=== PATIENT | male | born 1970 | race Caucasian/White ===

== ENCOUNTER 2017-06-23 13:37 | Emergency (ER) | payer MEDICAID ==
[2017-06-23 13:50] VITALS: O2SAT 98
[2017-06-23] MEDS ORDERED: Lidocaine 2% Inj (20ml) INFIL STA (14:21)
[2017-06-23] MEDS ORDERED: Lidocaine 2% Inj (20ml) ONE (14:25)
--- NOTE | 2017-06-23 16:10 | C.PDOC ---
History Of Present Illness 47 y/o male presents to the ED for evaluation of pain to left index finger which began around 4 days ago. Patient states he bit off a dry cuticle that is now infected. He denies active bleeding. Time Seen by Provider: 06/23/17 14:07 Chief Complaint (Nursing): Finger,Hand,&Wrist History Per: Patient History/Exam Limitations: no limitations Onset/Duration Of Symptoms: Days (4) Current Symptoms Are (Timing): Still Present Quality: "Pain" Additional History Per: Patient Past Medical History Reviewed: Historical Data, Nursing Documentation, Vital Signs Vital Signs: Last Vital Signs Temp 98.2 F 06/23/17 16:20 Pulse 78 06/23/17 16:20 Resp 18 06/23/17 16:20 BP 124/78 06/23/17 16:20 Pulse Ox 98 06/23/17 20:44 - Medical History PMH: Asthma Family History: States: Unknown Family Hx - Social History Hx Alcohol Use: No Hx Substance Use: Yes - Immunization History Hx Tetanus Toxoid Vaccination: No Hx Influenza Vaccination: No Hx Pneumococcal Vaccination: No Review Of Systems Musculoskeletal: Positive for: Other (+left index finger pain ) Physical Exam - Physical Exam Appears: Non-toxic, No Acute Distress Skin: Normal Color, Warm, Dry, No Ecchymosis Extremity: Normal ROM, Tenderness (left index finger ), Capillary Refill (less than 2 seconds), Swelling (left index finger), Other (fluctuant paronychia to left index finger ) Neurological/Psych: Normal Speech, Normal Cognition ED Course And Treatment O2 Sat by Pulse Oximetry: 98 (on RA) Pulse Ox Interpretation: Normal Progress Note: Fluctuant area to left index finger. Local anesthesia achieved with 2% lidocaine without epinephrine. Copious amounts of yellow purulent discharge expressed. Culture obtained and sent to lab for further evaluation. Sterile packing placed in incision. Wound dressed with dry, sterile dressing. Pt tolerated well. Patient received Augmentin PO. On reassessment, patient is resting comfortably, showing no signs of distress, and reports an improvement in his symptoms. Patient is stable for discharrge and is advised to follow up with his PMD within 1-2 days for further evaluation. Reassessment Condition: Improved - Incision & Drainage Of Abscess Anesthesia: Lidocaine 1% Procedure: Drained Pus, Probed To Break Up Loculations, Packed W/Gauze, Cultures Obtained And Sent To Lab Disposition - Disposition Referrals: Xu Avalos MD [Staff Provider] - Disposition: HOME/ ROUTINE Disposition Time: 16:08 Condition: STABLE Additional Instructions: Follow up with PMD within 1-2 days. Return to ED if feel worse. 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 - Scribe Statement The provider has reviewed the documentation as recorded by the Scribe (Micaela Hinds) All medical record entries made by the Scribe were at my direction and personally dictated by me. I have reviewed the chart and agree that the record accurately reflects my personal performance of the history, physical exam, medical decision making, and the department course for this patient. I have also personally directed, reviewed, and agree with the discharge instructions and disposition. Addendum Addendum: 06/26/17 07:44 Patient was called back for new antibiotic prescription that needs to be changed. 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
[2017-06-23] MEDS ORDERED: Amoxicillin-Clav 875-125 mg Tab PO STA (16:11)
[2017-06-23] MEDS ORDERED: Amoxicillin-Clav 875-125 mg Tab PO ONE (16:19)
[2017-06-23 16:22] VITALS: BP 124/78; PULSE 78; RESP 18; TEMP 98.2
[2017-06-23] MEDS ORDERED: Bacitracin 500 Units/gm Oint Foilpak UD ONE (16:24)
== END 2017-06-23 16:22 | disposition home or self-care (01) ==
LOC: C.ER 13:37
DX: L03.012 Cellulitis of left finger (principal)

== ENCOUNTER 2017-08-23 14:06 | Emergency (ER) | payer MEDICAID, OTHER ==
[2017-08-23 14:15] VITALS: BP 132/80; PULSE 69; RESP 18; TEMP 97.7; O2SAT 100
--- NOTE | 2017-08-23 14:34 | C.PDOC ---
Time Seen by Provider: 08/23/17 14:33 Chief Complaint (Nursing): Headache Past Medical History Vital Signs: Last Vital Signs Temp 97.7 F 08/23/17 14:11 Pulse 69 08/23/17 14:11 Resp 18 08/23/17 14:11 BP 132/80 08/23/17 14:11 Pulse Ox 100 08/23/17 14:11 - Medical History PMH: Asthma Denies: Chronic Kidney Disease Family History: States: Unknown Family Hx - Social History Hx Alcohol Use: No Hx Substance Use: Yes (Marijuana - ocassionally) - Immunization History Hx Tetanus Toxoid Vaccination: No Hx Influenza Vaccination: No Hx Pneumococcal Vaccination: No ED Course And Treatment O2 Sat by Pulse Oximetry: 100 Disposition - Disposition
--- NOTE | 2017-08-23 14:44 | C.PDOC ---
History Of Present Illness 47 year old male presents to the ED for evaluation after he sustained a fall yesterday. Patient complains of a head injury, left upper extremity, left hip, and left buttock injury. Patient states he slipped on wet floor. He denies LOC, nausea, vomiting. Patient is ambulatory without difficulty. Patient states pain is worse with movement. He denies any other associated symptoms at this time. SP FALL YESTERDAY CO HEAD INJURY, LUE AND L HIP.BUTTOCK INJURY. PS SLIPPED ON WET FLOOR. NO LOC, NV. AMBUL WO DIFF. PAIN WORSE W MOVEMENT. NO OTHER ASSOC SX EXAM NAD HEENT ATRAUM NO FOCAL TEND, MIND SWELL L PARIETAL AREA EXT L SHOULDER AROM WO DIFF ATRAUM NO FOCAL TEND. L HIP AROM WO DIFF. NONTEND. PT DOESNT WANT TO REMOVE PANTS FOR FULL EVAL GAIT WNL WT BEAR WO DIFF NEURO INTACT - HPI Time Seen by Provider: 08/23/17 14:33 Chief Complaint (Nursing): Headache History Per: Patient History/Exam Limitations: no limitations Injury Occurred (Timing): Just Before Arrival Location Of Injury: Left: Arm, Buttock, Hip Additional History Per: Patient - Fall Fall:Prior To Injury: Slipped Past Medical History Reviewed: Historical Data, Nursing Documentation, Vital Signs Vital Signs: Last Vital Signs Temp 97.7 F 08/23/17 14:11 Pulse 69 08/23/17 14:11 Resp 18 08/23/17 14:11 BP 132/80 08/23/17 14:11 Pulse Ox 100 08/23/17 23:16 - Medical History PMH: Asthma Denies: Chronic Kidney Disease Surgical History: No Surg Hx Family History: States: Unknown Family Hx - Social History Hx Alcohol Use: No Hx Substance Use: Yes (Marijuana - ocassionally) - Immunization History Hx Tetanus Toxoid Vaccination: No Hx Influenza Vaccination: No Hx Pneumococcal Vaccination: No Review Of Systems Gastrointestinal: Negative for: Nausea, Vomiting Musculoskeletal: Positive for: Shoulder Pain (left ), Other (left hip pain ) Physical Exam - Physical Exam Appears: Non-toxic, No Acute Distress Skin: Normal Color, Warm, Dry Head: Atraumatic, No Tenderness (focal ), Swelling (mild, to left parietal area ) Eye(s): bilateral: Normal Inspection Ear(s): Bilateral: Normal Nose: Normal, No Epistaxis, No Septal Hematoma Oral Mucosa: Moist Throat: Normal, No Erythema, Exudate Neck: Supple Chest: Symmetrical, No Deformity, No Tenderness Cardiovascular: Rhythm Regular Respiratory: Normal Breath Sounds Extremity: Normal ROM (to left shoulder and left hip without difficulty), No Tenderness (left hip ), Capillary Refill (less than 2 seconds ), Other (left shoulder: atraumatic and no focal tenderness. patient does not want to remove pants for full evaluation ) Neurological/Psych: Oriented x3, Normal Speech, Normal Cognition Gait: Steady (weight bearing wihtout difficulty) ED Course And Treatment O2 Sat by Pulse Oximetry: 100 (on RA ) Pulse Ox Interpretation: Normal Progress Note: Lidoderm TD and Tylenol PO administered. Disposition Counseled Patient/Family Regarding: Diagnosis, Need For Followup, Rx Given - Disposition Referrals: YOUR,PMD [Other] Disposition: HOME/ ROUTINE Disposition Time: 14:44 Condition: IMPROVED Prescriptions: Acetaminophen [Tylenol Extra Strength] 2 tab PO Q6 #30 tablet Cyclobenzaprine [Flexeril] 10 mg PO TID #15 tab Ibuprofen [Motrin] 600 mg PO Q6 #30 tab Lidocaine 5% [Lidoderm] 3 ea TD PRN PRN #20 patch PRN Reason: Pain, Moderate (4-7) Instructions: Head Injury (ED), Contusion in Adults (ED) Forms: [employer] (Montenegrin) - Clinical Impression Clinical Impression: Head injury, Multiple contusions - Scribe Statement The provider has reviewed the documentation as recorded by the Scribe (Micaela Hinds) Provider Attestation: All medical record entries made by the Scribe were at my direction and personally dictated by me. I have reviewed the chart and agree that the record accurately reflects my personal performance of the history, physical exam, medical decision making, and the department course for this patient. I have also personally directed, reviewed, and agree with the discharge instructions and disposition.
[2017-08-23] MEDS ORDERED: Lidocaine 5% Patch TD STA (14:45)
[2017-08-23] MEDS ORDERED: Lidocaine 5% Patch TD ONE (14:51)
== END 2017-08-23 14:52 | disposition home or self-care (01) ==
LOC: C.ER 14:06
DX: S09.90XA Unspecified injury of head, initial encounter (principal); T14.8XXA Other injury of unspecified body region, initial encounter; W01.0XXA Fall on same level from slipping, tripping and stumbling without subsequent striking against object, initial encounter

== ENCOUNTER 2017-12-11 12:12 | Emergency (ER) | payer OTHER ==
[2017-12-11 12:24] VITALS: BP 124/78; PULSE 70; RESP 18; TEMP 97.9; O2SAT 97
[2017-12-11] MEDS ORDERED: Lidocaine 2% Inj (20ml) INFIL STA (12:34)
[2017-12-11] MEDS ORDERED: Lidocaine 2% Inj (20ml) ONE (12:38)
--- NOTE | 2017-12-11 12:57 | C.PDOC ---
History Of Present Illness 47-year-old male, presents to the emergency department for evaluation of painful mass over right anterior chest wall x2 days. No fever, chills, CP, SOB, dyspnea, no wound draining. Ambulate to ED for evaluation, not in any apparent distress. (Chata Sheriff) History Per: Patient History/Exam Limitations: no limitations Time Seen by Provider: 12/11/17 12:27 Chief Complaint (Nursing): Abdominal Pain Past Medical History Reviewed: Historical Data, Nursing Documentation, Vital Signs - Medical History PMH: Asthma Denies: Chronic Kidney Disease Family History: States: No Known Family Hx - Social History Hx Alcohol Use: No Hx Substance Use: Yes (Marijuana - ocassionally) - Immunization History Hx Tetanus Toxoid Vaccination: No Hx Influenza Vaccination: No Hx Pneumococcal Vaccination: No Vital Signs: Last Vital Signs Temp 97.9 F 12/11/17 12:23 Pulse 70 12/11/17 12:23 Resp 18 12/11/17 12:23 BP 124/78 12/11/17 12:23 Pulse Ox 97 12/11/17 13:57 Review Of Systems Respiratory: Negative for: Shortness of Breath Gastrointestinal: Negative for: Nausea Skin: Positive for: Other (Painful mass over right chest wall) Physical Exam - Physical Exam Appears: Well, Non-toxic, No Acute Distress Skin: Normal Color, Warm, Other (tender mass over anterior aspect Right chest wall 2cm diameter, (+) flactulance, (+) erythema) Neck: Trachea Midline, Supple Lymphatic: No Axilla Node Tenderness Respiratory: No Decreased Breath Sounds, No Accessory Muscle Use, No Stridor, No Wheezing Extremity: Normal ROM, No Pedal Edema, No Deformity, No Swelling Neurological/Psych: Oriented x3, Normal Speech ED Course And Treatment O2 Sat by Pulse Oximetry: 97 Progress Note: On re-eval, pt is afebrile, hemodynamicaly stable. NOn-toxic. Skin: abscess over Right anterior chest wall s/p I&D, pt tolerated well. Abx given. Pt advised on wound ca. ref. to f/u with ED in 2 days for wound check. return to ED if any worsening or new changes. - Incision & Drainage Of Abscess Anesthesia: Lidocaine 2% Prep Used: Betadine Procedure: Incised W/Scalpel Blade#: (11), Drained Pus, Irrigated Cavity W/ Saline, Packed W/Gauze Disposition Counseled Patient/Family Regarding: Diagnosis, Need For Followup, Rx Given - Disposition Disposition Time: 12:54 - Disposition Referrals: [facility] [Outside] Disposition: HOME/ ROUTINE Condition: STABLE Additional Instructions: Keep wound clean, dry take medication as prescribe return to ED in 2 days for wound check return to ED at any time if any worsening or new changes. Prescriptions: Doxycycline Hyclate [Doryx] 100 mg PO BID #14 cap Instructions: Skin Abscess, Abscess Incision and Drainage (DC) Forms: [employer] (Thai) - Clinical Impression Clinical Impression: Abscess
== END 2017-12-11 13:06 | disposition home or self-care (01) ==
LOC: C.ER 12:12
DX: L02.213 Cutaneous abscess of chest wall (principal)

== ENCOUNTER 2017-12-14 15:26 | Emergency (ER) | payer OTHER ==
[2017-12-14 15:50] VITALS: BP 118/79; TEMP 98.3; O2SAT 99; BMI 38.7
[2017-12-14 15:51] VITALS: PULSE 68; RESP 20
--- NOTE | 2017-12-14 16:34 | C.PDOC ---
History Of Present Illness 47 year old male presents to the ED for a wound check S/P and I&D of an abscess on his chest on 12/11. Patient states he has no other complaints. Patient's gauze was intact, no drainage seen from the incision with mild indurated skin surrounding the area. Patient denies fever, chills, nausea, vomit, diarrhea. Time Seen by Provider: 12/14/17 16:27 Chief Complaint (Nursing): Wound Check History Per: Patient History/Exam Limitations: no limitations Onset/Duration Of Symptoms: Days Ago Current Symptoms Are (Timing): Still Present Location Of Injury: Anterior: Chest Recent travel outside of the [place]: No Additional History Per: Patient Past Medical History Reviewed: Historical Data, Nursing Documentation, Vital Signs Vital Signs: Last Vital Signs Temp 98.3 F 12/14/17 15:50 Pulse 68 12/14/17 15:50 Resp 20 12/14/17 15:50 BP 118/79 12/14/17 15:50 Pulse Ox 99 12/16/17 01:26 - Medical History PMH: Asthma Denies: Chronic Kidney Disease Surgical History: No Surg Hx Family History: States: Unknown Family Hx - Social History Hx Alcohol Use: No Hx Substance Use: Yes (Marijuana - ocassionally) - Immunization History Hx Tetanus Toxoid Vaccination: No Hx Influenza Vaccination: No Hx Pneumococcal Vaccination: No Review Of Systems Constitutional: Negative for: Fever, Chills Respiratory: Negative for: Cough, Shortness of Breath Gastrointestinal: Negative for: Nausea, Vomiting, Abdominal Pain Skin: Negative for: Rash Neurological: Negative for: Weakness, Numbness Physical Exam - Physical Exam Appears: Non-toxic, No Acute Distress Skin: Normal Color, Warm, Dry Chest: Other (at incision site on right chest wall, no drainage, mild surrounding induration) Neurological/Psych: Oriented x3, Normal Speech, Normal Cognition Gait: Steady ED Course And Treatment O2 Sat by Pulse Oximetry: 99 (On RA) Pulse Ox Interpretation: Normal Medical Decision Making Medical Decision Making: packing removed, no further drainage, mild surrounding induration. Disposition Counseled Patient/Family Regarding: Diagnosis, Need For Followup - Disposition Disposition: HOME/ ROUTINE Disposition Time: 16:33 Condition: IMPROVED Additional Instructions: Wash open wound with soap and water when bathing. . Follow up with Dr Jauregui by the end of the week. Finish the rest of your antibiotics. TYlenol or Motrin for pain if needed. 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 - Scribe Statement The provider has reviewed the documentation as recorded by the Scribe Elias Slater All medical record entries made by the Scribe were at my direction and personally dictated by me. I have reviewed the chart and agree that the record accurately reflects my personal performance of the history, physical exam, medical decision making, and the department course for this patient. I have also personally directed, reviewed, and agree with the discharge instructions and disposition.
== END 2017-12-14 16:37 | disposition home or self-care (01) ==
LOC: C.ER 15:26
DX: Z51.89 Encounter for other specified aftercare (principal); L02.213 Cutaneous abscess of chest wall

== ENCOUNTER 2018-06-17 13:22 | Emergency (ER) | payer OTHER ==
[2018-06-17 13:22] VITALS: BMI 38.7
[2018-06-17 13:51] VITALS: BP 105/70; PULSE 74; RESP 18; TEMP 98.3; O2SAT 96
--- NOTE | 2018-06-17 14:07 | C.PDOC ---
History Of Present Illness 48-year-old male presents to the ED complaining of a red swollen area to his right lateral knee, noticed yesterday. Patient states it was smaller yesterday and then he itched it. Today he noticed the area had grown larger and became red , painful, and warm to touch. Otherwise he denies any fever or chills. No numbness, tingling, or extremity weakness. Time Seen by Provider: 06/17/18 13:59 Chief Complaint (Nursing): Abnormal Skin Integrity History Per: Patient History/Exam Limitations: no limitations Onset/Duration Of Symptoms: Days (x2) Current Symptoms Are (Timing): Still Present Past Medical History Reviewed: Historical Data, Nursing Documentation, Vital Signs Vital Signs: Last Vital Signs Temp 98.3 F 06/17/18 13:49 Pulse 74 06/17/18 13:49 Resp 18 06/17/18 13:49 BP 105/70 06/17/18 13:49 Pulse Ox 96 06/17/18 14:42 - Medical History PMH: Asthma Denies: Chronic Kidney Disease Surgical History: No Surg Hx Family History: States: Unknown Family Hx - Social History Hx Tobacco Use: Yes Hx Alcohol Use: No Hx Substance Use: Yes (Marijuana - ocassionally) - Immunization History Hx Tetanus Toxoid Vaccination: No Hx Influenza Vaccination: No Hx Pneumococcal Vaccination: No Review Of Systems Constitutional: Negative for: Fever, Chills Musculoskeletal: Positive for: Leg Pain (Right knee pain) Skin: Positive for: Other (red swelling to right knee) Neurological: Negative for: Weakness, Numbness, Incoordination Physical Exam - Physical Exam Appears: Well, Non-toxic, No Acute Distress Skin: Warm, Dry Head: Normacephalic Eye(s): bilateral: Normal Inspection Oral Mucosa: Moist Neck: Normal ROM Chest: Symmetrical Extremity: Normal ROM, No Tenderness, Capillary Refill (less than 2 sec), No Deformity, Other (Small pustule with 1cm mild surrounding erythema to right lateral knee) Pulses: Left Dorsalis Pedis: Normal, Right Dorsalis Pedis: Normal Neurological/Psych: Oriented x3, Normal Speech ED Course And Treatment O2 Sat by Pulse Oximetry: 96 (RA) Pulse Ox Interpretation: Normal Medical Decision Making Medical Decision Making: Impression: Pustule Patient will be discharged home with bactroban cream. Counseled regarding wound care and follow up instructions. Disposition Counseled Patient/Family Regarding: Diagnosis, Need For Followup, Rx Given - Disposition Referrals: Stewart Duque MD [Staff Provider] - Disposition: HOME/ ROUTINE Disposition Time: 14:07 Condition: GOOD Additional Instructions: Apply cream to affected site twice daily keep wound clean and dry Return to ER if high fever occurs, area grows much larger in size, or other concern Prescriptions: Mupirocin 2% Cream [Bactroban Cream] 30 applic EXT BID #1 tube Instructions: Wound Infection Forms: [employer] (Senegalese) - POA Present On Arrival: None - Clinical Impression Clinical Impression: Skin irritation, Skin pustule - 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 - Scribe Statement The provider has reviewed the documentation as recorded by the Scribe (Amy Christianson) All medical record entries made by the Scribe were at my direction and personally dictated by me. I have reviewed the chart and agree that the record accurately reflects my personal performance of the history, physical exam, medical decision making, and the department course for this patient. I have also personally directed, reviewed, and agree with the discharge instructions and disposition.
== END 2018-06-17 14:18 | disposition home or self-care (01) ==
LOC: C.ER 13:22
DX: L08.9 Local infection of the skin and subcutaneous tissue, unspecified (principal); Z72.0 Tobacco use